=== PATIENT | female | born 1985 | race Caucasian/White ===

== ENCOUNTER → 2017-01-16 | Outpatient (CLI) | payer BC ==
--- NOTE | 2017-01-16 10:32 | DI ---
Indication: ITS.REASON: Z34.91 ROUTINE CARE PROCEDURE: US OB COMPLETE < 14 WKS: Age by LMP is 10 weeks and 4 days. This correlates to an GHASSAN of August 10, 2017. Comparison: None Technique: Transabdominal and transvaginal sonographic pelvic imaging was performed. Findings: Imaging demonstrates a single intrauterine gestation. No motion or cardiac activity was detectable on transabdominal or transvaginal M mode imaging. Both ovaries were identified and appear normal. The left measures 2.7 x 2.2 x 1.9 cm, and the right 1.8 x 2.3 x 1.4 cm. No abnormal adnexal mass. No free fluid. Probable corpus luteum cyst on the left ovary. biometry: [place]cca rump length 2.12 cm: 8 weeks and 6 days. Impression: demise with estimated gestational age of 8 weeks and 6 days by ultrasound. These findings were called to the on-call physician covering for Dr. Josselyn Sahni on the morning of January 16, 2017. .
== END ==
LOC: IMA 09:33
PROVIDERS: ATTEND Family Medicine
DX: O36.4XX0 Maternal care for intrauterine death, not applicable or unspecified (principal); Z3A.08 8 weeks gestation of pregnancy

== ENCOUNTER → 2017-02-01 | Outpatient (CLI) | payer BC ==
--- NOTE | 2017-02-01 10:54 | DI ---
Indication: ITS.REASON: O03.9 MISCARRIAGE PROCEDURE: US OB COMPLETE < 14 WKS: Comparison: January 16, 2017 Technique: Transabdominal sonographic pelvic imaging was performed. FINDINGS: No intrauterine gestation present. Uterine parenchyma is homogeneous. Thickening of the heterogeneous endometrial stripe which measures 25 mm in thickness. No detectable internal Doppler flow or discrete parts. Both ovaries are identified and normal in appearance. The right ovary measures 2 x 1.2 x 1.6 cm. The left ovary measures 2.1 x 1.1 x 2.2 cm. There are no abnormal adnexal masses detected. No free fluid. IMPRESSION: Thickened endometrium could be due to subacute blood products. No evidence for vascularized retained products of conception or parts. .
== END ==
LOC: IMA 08:42
PROVIDERS: ATTEND Family Medicine
DX: O03.9 Complete or unspecified spontaneous abortion without complication (principal); R93.8 Abnormal findings on diagnostic imaging of other specified body structures

== ENCOUNTER 2018-05-01 13:20 | Inpatient (IN) ==
[2018-05-01] MEDS ORDERED: CARBOPROST 250 MCG/ML INJECTION IM PRN (13:37)
[2018-05-01] MEDS ORDERED: SALINE FLUSH 10ml SYRINGE IV PRN (13:37)
[2018-05-01] MEDS ORDERED: LIDOCAINE 1% (10mg/ml) 2mL INJ PF SDV ID PRN (13:37)
[2018-05-01] MEDS ORDERED: MAG-AL + SIM ORAL LIQUID 30ml PO PRN (13:37)
[2018-05-01] MEDS ORDERED: CALCIUM CARBONATE Chewable 500mg TABLET PO PRN (13:37)
[2018-05-01] MEDS ORDERED: METHYLERGONOVINE 0.2 MG/ML INJECTION IM PRN (13:37)
[2018-05-01] MEDS ORDERED: ACETAMINOPHEN 500 MG TABLET PO PRN (13:37)
[2018-05-01] MEDS: LR 1,000 ML IV PRN ×3 (13:54→22:53)
[2018-05-01 14:13] VITALS: BMI 34.7
[2018-05-01] MEDS ORDERED: DiphenhydrAMINE 50 MG/ML INJECTION IVP PRN (14:59)
[2018-05-01] MEDS ORDERED: ONDANSETRON 4 MG/2 ML INJECTION IVP PRN (14:59)
[2018-05-01] MEDS ORDERED: NALOXONE 0.4 MG/ML INJECTION IVP PRN (14:59)
[2018-05-01] MEDS ORDERED: ROPIVACAINE 1% 10MG/ML INJ 200 MG, SUFentanil 50 MCG in NS 100 ML EPI PRN (14:59)
--- NOTE | 2018-05-01 14:59 | Anesthesia Preoperative Report ---
Anesthesia Epidural/Spinal Rec - Date and Time Date: 05/01/18 Preoperative Diagnosis: labor Procedure: Labor Epidural Plan: Epidural - Vital Signs Vital Signs: Temperature 98.6 F 05/01/18 14:16 Pulse Rate 96 05/01/18 14:16 Respiratory Rate 16 05/01/18 14:16 Blood Pressure 119/81 05/01/18 14:16 Pulse Oximetry 99 05/01/18 14:16 NPO since: 1200 /Para: P:0 Heart Rate: 140 - Medictaions & Allergies Inpatient Medications: Current Medications Acetaminophen (Tylenol) 500 - 1,000 mg PO Q4H PRN PRN Reason: Pain Al Hydroxide/Mg Hydroxide (Maalox Plus) 30 ml PO Q3H PRN PRN Reason: Indigestion Calcium Carbonate (Tums) 500 - 1,000 mg PO Q2H PRN PRN Reason: Indigestion Carboprost Tromethamine (Hemabate) 250 mcg IM O PRN PRN Reason: .Downtime Lactated Ringer's (Lactated Ringers) 1,000 mls @ 999 mls/hr IV .Q1H1M PRN Last Admin: 05/01/18 14:49 Dose: 999 mls/hr Lidocaine HCl (Xylocaine-Mpf 1% Vial) 0.2 mg ID O PRN PRN Reason: IV Start Methylergonovine Maleate (Methergine) 0.2 mg IM O PRN Misoprostol (Cytotec) 800 mcg [place] ONCE PRN Sodium Chloride (Iv Flush) 10 - 80 ml IV PRN PRN PRN Reason: Flushing Allergies/Adverse Reactions: Allergies Allergy/AdvReac Type Severity Reaction Status Date / Time No Known Allergies Allergy Verified 04/30/18 13:09 - Home Medications Home Medications: Home Medications Medication Instructions Recorded Confirmed Type Pnv No.95/Ferrous Fum/Folic AC 1 each PO DAILY 04/04/18 04/04/18 History [ Tablet] Colace 2 tab PO BID 04/30/18 04/30/18 History - Medical History Neuro/Musculoskeletal: Denies: Depression Other History: Reports: Now DENIES: Anesthesia Reactions - Surgical History Reproductive Surgery/Treatment: DENIES: Section Anesthesia Reactions: None Hx Family Anesthesia Reaction: No - Social History Smoking Status: Never smoker Substance Use Type: does not use - Pertinent Findings Lab Data: CBC and BMP 07/11/18 13:47 - Physical Exam Respiratory Exam: lungs clear Cardiovascular Exam: regular rate and rhythm, no murmur - Airway Assessment Mallampati Score: II TMD: 3 Fingerbreadths Neck Extension: good Overall Assessment: may be difficult intubation - ASA ASA Score: 2 - Discussion Discussion: Discussed risks/options/alternatives of anesthesia and questions answered. Patient consents. Nursing pain assessment noted. Attestation Statement: Prior to the delivery of any anesthetic medication, I examined the patient, developed the plan, obtained the patient's consent and discussed the risk and benefits of the procedure with the patient/guardian.
[2018-05-01] MEDS ORDERED: OXYTOCIN DRIP 30 UNIT/500 ML ML IV SCH (16:00)
[2018-05-02] MEDS ORDERED: CEFAZOLIN PREMIX (MC ONLY) 2 GM/50 ML BAG IV ONE (01:43)
[2018-05-02] MEDS ORDERED: CITRIC ACID/SODIUM CITRATE 30ml PO ONE (01:43)
[2018-05-02] MEDS ORDERED: FAMOTIDINE PB 20 MG/50 ML BAG IV ONE (01:43)
[2018-05-02] MEDS ORDERED: TRANEXAMIC ACID 1,000 MG/10 ML VIAL IV ONE (01:57)
[2018-05-02] MEDS ORDERED: AZITHROMYCIN IV 500 MG in NS 250ml 250 ML IV SCH (02:00)
[2018-05-02] MEDS ORDERED: PHENYLEPHRINE INJ 10 MG/ML VIAL IV ONE (02:07)
[2018-05-02] MEDS ORDERED: EPINEPHrine 1mg/ml (1:1000) vial ONE (02:07)
[2018-05-02] MEDS: LR 1,000 ML IV PRN (02:08)
[2018-05-02] MEDS ORDERED: EPHEDRINE 50mg/ml INJECTION ONE (02:08)
[2018-05-02] MEDS ORDERED: FentaNYL 100 MCG/2 ML INJECTION ONE (02:11)
[2018-05-02] MEDS ORDERED: LIDOCAINE 2%/EPI 1:200,000 20ml SDV PF ONE (02:11)
[2018-05-02] MEDS ORDERED: MIDAZOLAM 2mg/2ml INJECTION ONE (02:23)
[2018-05-02] MEDS ORDERED: ONDANSETRON 4 MG/2 ML INJECTION ONE (02:39)
[2018-05-02] MEDS: OXYTOCIN BOLUS BAG 30 UNIT/500 ML ML IV SCH ×3 (02:42→04:50)
[2018-05-02] MEDS ORDERED: MORPHINE SULFATE PF 5mg/10ml INJ (Duramorph) ONE (02:59)
[2018-05-02] MEDS ORDERED: TRANEXAMIC ACID 1,000 MG in NS 100 ML IV ONE (03:10)
[2018-05-02] MEDS ORDERED: NALOXONE 2 MG/2 ML INJECTION PFS IVP PRN (03:38)
[2018-05-02] MEDS ORDERED: GENTAMICIN - PHARMACY CONSULT MC ONE (03:50)
[2018-05-02] MEDS ORDERED: ONDANSETRON 4 MG/2 ML INJECTION IVP PRN (04:28)
[2018-05-02] MEDS ORDERED: D5LR 1,000 ML IV SCH ×2 (04:28→05:00)
[2018-05-02] MEDS ORDERED: HYDROCORTISONE 2.5% CREAM 30gm RECTALLY PRN ×2 (04:28→04:46)
[2018-05-02] MEDS ORDERED: DiphenhydrAMINE 25 MG CAPSULE PO PRN ×2 (04:28→04:46)
[2018-05-02] MEDS ORDERED: CALCIUM CARBONATE Chewable 500mg TABLET PO PRN ×2 (04:28→04:46)
[2018-05-02] MEDS ORDERED: OXYTOCIN DRIP 30 UNIT/500 ML ML IV SCH (04:28)
[2018-05-02] MEDS ORDERED: ACETAMINOPHEN 500 MG TABLET PO PRN ×2 (04:28→04:46)
[2018-05-02] MEDS ORDERED: SIMETHICONE 80 MG CHEWABLE TABLET PO PRN ×2 (04:28→04:46)
[2018-05-02] MEDS: AMPICILLIN 2,000 MG in NS 100 ML IV SCH ×3 (04:41→17:01)
[2018-05-02] MEDS ORDERED: HYDROCODONE/APAP 5mg/325mg TABLET PO PRN (04:46)
[2018-05-02] MEDS: IBUPROFEN 800 MG TABLET PO SCH ×2 (04:55→15:33)
[2018-05-02] MEDS: GENTAMICIN 120 MG in NS 100 ML IV SCH ×3 (05:29→20:00)
[2018-05-02] MEDS: CLINDAMYCIN PB 900 MG/50 ML BAG IV SCH ×3 (06:07→22:31)
[2018-05-02] MEDS ORDERED: IBUPROFEN 800 MG TABLET PO SCH (08:00)
[2018-05-02] MEDS ORDERED: DOCUSATE CALCIUM 240 MG CAPSULE PO SCH (09:00)
[2018-05-02] MEDS ORDERED: SIMETHICONE 80 MG CHEWABLE TABLET PO SCH (09:30)
[2018-05-02] MEDS: DOCUSATE CALCIUM 240 MG CAPSULE PO SCH (10:07)
[2018-05-02] MEDS: SIMETHICONE 80 MG CHEWABLE TABLET PO SCH ×4 (10:08→22:31)
--- NOTE | 2018-05-02 11:40 | Pharmacy Consult-Antibiotics ---
Pharmacy Consult-Gentamicin - Laboratory Information Gentamicin WBC 18.2 T/MM3 (4.5-11.0) H 05/02/18 09:12 - Consult Information Gentamicin consult noted by Dr Guzmán for Adelita Mata, who is 32 yo and weighs 94.8kg. She has no history of renal disease. She is an increased WBC count. She is currently afebrile. Will continue the gentamicin 120mg IV q8h and continue to monitor. Thank you.
--- NOTE | 2018-05-02 13:21 | OB/GYN Progress Note ---
OB-PP Progress Note - General POD:: POD1 Maternal Group B Strep: Negative Maternal Rh: positive Maternal Rubella Status: Immune - Subjective Date: 05/02/18 Lochia: Minimal Pain: controlled Voiding: nieves still in place Nausea or Vomiting Present: No - Objective Vital Signs: Last Vital Signs Temp 98.4 F 05/02/18 11:00 Pulse 90 05/02/18 11:00 Resp 16 05/02/18 11:00 BP 101/60 05/02/18 11:00 Pulse Ox 98 05/02/18 11:00 Urine Output: good General: alert and oriented Cardiovascular: regular rate,rhythm Respiratory: non-labored Respiratory Auscultation: clear bilaterally Abdomen: fundus firm, tender (appropriate) Incision: dressed (dressing clean externally) Extremities: non-tender Edema: none Side: bilateral Edema Degree: 2+ Laboratory: Laboratory Results - last 24 hr 05/01/18 05/01/18 05/01/18 13:47 13:47 13:47 WBC 13.5 H RBC 4.16 Hgb 12.9 Hct 38.1 MCV 91.6 MCH 31.0 MCHC 33.9 RDW Std Deviation 41.5 Plt Count 191 MPV 10.9 HIV 1&2 Antibody Negative Blood Type O Positive Antibody Screen Negative 05/02/18 09:12 WBC 18.2 H RBC 3.77 L Hgb 11.6 L Hct 34.7 L MCV 92.0 MCH 30.8 MCHC 33.4 RDW Std Deviation 41.6 Plt Count 164 MPV 10.6 HIV 1&2 Antibody Blood Type Antibody Screen - Assessment (1) Status: Acute - Assessment Assessment: SP, Primary C/S, Chorioamnionitis - Plan Plan: routine care, antibiotics
--- NOTE | 2018-05-02 15:26 | Anesthesia Postoperative Note ---
- Date and Time Date: 05/02/18 Time: 15:20 - Status Patient Participated in Evaluation: Patient Participated in Person Vital Signs: Temperature 98.4 F 05/02/18 11:00 Pulse Rate 90 05/02/18 11:00 Respiratory Rate 16 05/02/18 11:00 Blood Pressure 101/60 05/02/18 11:00 Pulse Oximetry 98 05/02/18 11:00 Respiratory Function: Airway Patent, Regular Respirations Cardiovascular Function: Regular Pulse Mental Status: Alert and Oriented Pain Intensity: 1 Hydration: Taking PO Fluids Complications During Recover: None Apparent Post Anesthesia Care Notes: Ambulating without problems - Follow-Up Instructions Instructions: Per Surgeon
[2018-05-02] MEDS: SALINE FLUSH 10ml SYRINGE IV PRN ×2 (15:35→17:02)
[2018-05-03] MEDS: GENTAMICIN 120 MG in NS 100 ML IV SCH (00:03)
[2018-05-03] MEDS: AMPICILLIN 2,000 MG in NS 100 ML IV SCH ×2 (00:56→04:45)
[2018-05-03] MEDS: IBUPROFEN 800 MG TABLET PO SCH ×5 (01:15→21:54)
[2018-05-03] MEDS: CLINDAMYCIN PB 900 MG/50 ML BAG IV SCH (06:00)
[2018-05-03] MEDS: HYDROCODONE/APAP 5mg/325mg TABLET PO PRN ×3 (08:39→17:51)
[2018-05-03] MEDS: DOCUSATE CALCIUM 240 MG CAPSULE PO SCH (08:39)
--- NOTE | 2018-05-03 09:25 | Operative Note ---
DATE OF OPERATION 05/02/2018 PREOPERATIVE DIAGNOSIS 1. 32-year old G2, P0, at 40 weeks 1 day estimated gestational age. 2. Failure of descent. 3. Failed forceps delivery. 4. Chorioamnionitis. POSTOPERATIVE DIAGNOSIS 1. 32-year old G2, P0, at 40 weeks 1 day estimated gestational age. 2. Failure of descent. 3. Failed forceps delivery. 4. Chorioamnionitis. 5. Cephalopelvic disproportion. 6. Malpresentation in occiput posterior position 7. Posterior uterine fibroid. PROCEDURE 1. Attempted low forceps delivery vaginally - failed. 2. Primary low transverse section SURGEON Nuria Guzmán MD [employer] iLli Saleem MD EBL 700 mL IV FLUIDS 1300 mL of LR URINE OUTPUT 150 mL clear reddish urine at the end of the procedure INDICATIONS 32-year old G2, P0 at 40 weeks 1 day estimated gestational age with arrest of descent and tachycardia and chorioamnionitis, failed forceps delivery. FINDINGS Female infant in occiput posterior presentation, thick meconium. Dr. Goode was present at delivery to receive baby. Apgars 8/9. Weight was 3956 grams (8 pounds 11.5 ounces). Name "John Mata". DESCRIPTION OF PROCEDURE Low forcep application, failed delivery attempt: Prior to proceeding to the OR, options were discussed with the patient to go directly to section versus attempt forceps delivery as she was able to get the baby down to a +2 station. Risks and side effects of the procedure were discussed with the patient and her . They chose to proceed with forceps. Therefore, after assuring adequate anesthesia was in place and her bladder was empty, closed [place] forceps were placed carefully without any significant difficulty. The handles were able to come together and lock without complication. Patient was still able to push well at the time, she had been pushing for approximately three hours prior to application of the forceps. Efforts were made to bring the baby down in the pelvis using the forceps throughout the next two contractions with no progress. At that time, the decision was made to stop attempt at forceps delivery and proceed with section. No traction or rotation maneuvers were performed using the forceps. After removal of the forceps, the cervix, vagina and perineum were evaluated for trauma. There was a very small area of abrasion at the posterior midline aspect of the vagina where the tissue had been stretched. The laceration was not deep and was not bleeding. No repair was performed. There was no other apparent trauma visualized. In addition, evaluation of the after delivery via as below, showed no evidence of scalp trauma with the exception of one small sub-2 cm scratch on the right posterior scalp area. There was no significant swelling or bruising noted. SECTION PROCEDURE After verbal and written informed consent, patient was then taken to the operating room where epidural anesthesia was found to be adequate. She was then prepped and draped in the usual sterile fashion in the dorsal supine position with left lateral tilt. A Pfannenstiel skin incision was then made using a scalpel and carried through to the underlying layer of fascia. Fascia was then incised in the midline and incision was extended laterally using Watt scissors. Superior aspect of the fascial incision was then grasped with Padma clamps, tented up, elevated and the underlying rectus muscles were dissected off bluntly and sharply. Attention was then turned to the inferior aspect of the incision which, in a similar fashion, was grasped, tented up with Padma clamps and the rectus muscles were dissected off bluntly. The rectus muscles were then in the midline and the peritoneum was identified, tented up and entered sharply using Metzenbaum scissors. The peritoneal incision was then extended superiorly and inferiorly, with good visualization of the bladder. A bladder blade was then inserted and the bladder was visualized to be quite low. Uterine incision was made above the level of the bladder within the lower uterine segment. The lower uterine segment was incised in a transverse fashion using a scalpel. The uterine incision was extended laterally using manual traction. The bladder blade was removed and the infant's head was found to be suctioned down into the pelvis due to the significant attempts to deliver vaginally. Nursing staff did don sterile gloves and help with elevation of the head and pressure from below which then was able to break the vacuum seal of the head in the pelvis and the baby's head was able to be then atraumatically lifted up and out of the pelvis. The baby was then delivered without difficulty through the uterine incision. Baby's nose and mouth were then suctioned using bulb suction. The cord was doubly clamped and cut and the baby was handed off to Dr. Goode. Placenta was then removed manually and the uterus was exteriorized and cleared of all clots and debris. Uterine incision was then repaired using 0 Monocryl in a running locking fashion. After there was good hemostasis at the uterine incision, uterus was then returned to the abdomen. Gutters were clear of all clots and debris and the peritoneum was then closed using 2-0 Vicryl. Fascia was reapproximated with 0 Vicryl in a running fashion. The skin was then closed using wide sue. Patient tolerated the procedure well. Sponge, lap and needle counts were correct x2. Prior to the procedure, 2 grams of Kefzol, 500 mg of Zithromax and 1 gram of TXA were given IV. Patient was taken to the recovery room where she and baby are at the time of this dictation and are in good condition. Of note, baby did have a temperature of 102.0 and we did diagnose mother with chorioamnionitis. Both mother and baby will be treated with antibiotics at this time. ISAEL
[2018-05-03] MEDS: SIMETHICONE 80 MG CHEWABLE TABLET PO SCH ×3 (09:30→22:14)
--- NOTE | 2018-05-03 13:47 | Progress Note ---
OB PP Progress Note Free Text - Date Date: 05/03/18 - Progress Note Progress Note: S: Pt doing very well. Yocasta PO/Amb/Void. Min lochia. Bottle feeding. Pos edema. O: AF VSS Gen: A&O NAD, RRR, CTA bilat, FF/NT, below umb, 3+ BLE edema, neg Tobin's bilat A/P: 32yo at 40-1 s/p PLTCS for CPD, chorio. Pt w/o fever x 24 hours, abx d/c'd. Plan for D/c tomorrow & f/u in office w/ López Voth on Sunday for staple removal & wt check for baby. Call if any concerns.
[2018-05-03 17:59] VITALS: RESP 16
[2018-05-04 00:41] VITALS: BP 107/65; PULSE 81; TEMP 97.8; O2SAT 97
[2018-05-04] MEDS: SIMETHICONE 80 MG CHEWABLE TABLET PO SCH ×2 (00:42→07:47)
[2018-05-04] MEDS: IBUPROFEN 800 MG TABLET PO SCH (06:16)
[2018-05-04] MEDS: HYDROCODONE/APAP 5mg/325mg TABLET PO PRN (07:46)
[2018-05-04] MEDS: DOCUSATE CALCIUM 240 MG CAPSULE PO SCH (07:47)
== END 2018-05-04 11:55 | disposition home or self-care (01) | DRG 765 ==
LOC: MC 13:20
PROVIDERS: ADMIT Family Medicine; ATTEND Family Medicine